=== PATIENT | female | born 1980 | race African-American/Black ===

== ENCOUNTER 2023-06-08 09:56 | Emergency (ER) | payer OTHER ==
[~2023-06-08] VITALS: Ht 170.2 cm; Wt 86.4 kg
[~2023-06-08 09:56] MED LIST: AMBIEN CR6.25 MG PO; ATARAX50 MG PO; INSULIN HUMA100 U/ML SQ; LEXAPRO20 MG PO; PROAIR HFA0.09 MG/AC IH; PROTONIX20 MG PO; ZOFRAN 4MG T4 MG/TAB PO
[2023-06-08 10:14] VITALS: TEMP 98.1
[2023-06-08 10:49] LABS: BASO % 0.8 % (0.0-2.0); EOS % 0.8 % (0.0-4.0); GRAN # 2.6 K/mm3 (1.4-6.5); GRAN % 49.8 % (42.2-75.2); LYMPH # 1.8 K/mm3 (1.2-3.4); MEAN CELL VOLUME 90 fl (80.0-100.0); MEAN CORPUSCULAR HEMOGLOBIN 31 pg (27-31); MEAN CORPUSCULAR HGB CONC 34 g/dl (33.0-37.0); MONO # 0.7 K/mm3 (0.1-0.6); MONO % 13.4 % (1.7-9.3); PLATELET COUNT 251 K/mm3 (130-400); RED BLOOD COUNT 4.55 M/mm3 (4.10-5.30); REDCELL DISTRIBUTION WIDTH-CV 11.9 % (11.5-14.5)
[2023-06-08 11:52] LABS: COLLECTION METHOD CLEAN CATCH
[2023-06-08 12:01] LABS: ALANINE AMINOTRANSFERASE 19 U/L (0-55); ALBUMIN 3.6 gm/dL (3.5-5.0); ALKALINE PHOSPHATASE 59 U/L (40-150); AST,SGOT 20 U/L (5-34); BILIRUBIN,TOTAL 0.6 mg/dL (0.2-1.2); BLOOD UREA NITROGEN 16 mg/dL (7-19); CALCIUM 9.2 mg/dL (8.4-10.2); CARBON DIOXIDE 26 mmol/L (22-29); CREATININE, serum 1.12 mg/dL (0.57-1.11); GLUCOSE 199 mg/dL (70-99); TOTAL PROTEIN 6.7 gm/dL (6.2-8.1)
[2023-06-08 12:05] LABS: ANION GAP 10 mmol/L (7-16); CHLORIDE 101 mmol/L (98-107); POTASSIUM 3.9 mmol/L (3.5-4.5); SODIUM 137 mmol/L (136-145)
[2023-06-08 12:28] LABS: URINE APPEARANCE Clear (CLEAR/HAZY); URINE BLOOD Negative (NEGATIVE); URINE COLOR Straw (YELLOW); URINE GLUCOSE TRACE (NEGATIVE); URINE KETONE 1+ (NEGATIVE); URINE NITRATE Negative (NEGATIVE); URINE PROTEIN(semi-quant) 2+ (NEGATIVE); URINE RBC None Seen /hpf (0-2); URINE UROBILINOGEN 0.2 E.U/dL (0.2-1.0)
[2023-06-08 12:29] LABS: URINE BACTERIA Moderate /hpf (NONE SEEN)
[2023-06-08 12:56] LABS: ACETONE,SERUM NEGATIVE
[2023-06-08 13:15] VITALS: BP 152/83; PULSE 63
[2023-06-09] MEDS ORDERED: DIFLUCAN200 MG PO (09:55)
== END 2023-06-08 13:24 | disposition home or self-care (01) ==
LOC: COL.ER 09:56
PROVIDERS: Nurse Practitioner
DX: E10.65 Type 1 diabetes mellitus with hyperglycemia (principal); R53.83 Other fatigue; Z28.310 Unvaccinated for COVID-19
CPT/HCPCS: J7030

== ENCOUNTER → 2023-06-11 | Outpatient (CLI) | payer OTHER ==
[~2023-06-11] MED LIST changes: +DIFLUCAN200 MG PO
== END ==
LOC: COL.RAD 15:09
DX: E04.9 Nontoxic goiter, unspecified (principal)

== ENCOUNTER 2023-08-06 13:08 | Emergency (ER) | payer OTHER ==
[~2023-08-06] VITALS: Ht 180.3 cm; Wt 90.9 kg
[~2023-08-06 13:08] MED LIST changes: +PROMETHAZINE D473 ML PO
[2023-08-06 13:12] VITALS: TEMP 98.8
[2023-08-06] MEDS ORDERED: LEVAQUIN 750MG750 M1 PO (14:26)
[2023-08-06] MEDS ORDERED: PREDNISONE50 MG PO (14:26)
[2023-08-06 14:54] VITALS: BP 105/79; PULSE 82
== END 2023-08-06 14:57 | disposition home or self-care (01) ==
LOC: COL.ER 13:08
DX: J40 Bronchitis, not specified as acute or chronic (principal); Z87.891 Personal history of nicotine dependence; Z88.1 Allergy status to other antibiotic agents

== ENCOUNTER → 2023-12-15 | Outpatient (CLI) | payer OTHER ==
[~2023-12-15] MED LIST changes: +LEVAQUIN 750MG750 M1 PO; +PREDNISONE50 MG PO
== END ==
LOC: MC.RAD 15:19
DX: Z12.31 Encounter for screening mammogram for malignant neoplasm of breast (principal)